=== PATIENT | female | born 2000 | race African-American/Black ===

== ENCOUNTER 2020-04-29 12:40 | Emergency (ER) | payer BC, OTHER ==
[2020-04-29] MEDS ORDERED: EPINEPHrine 1 MG/ML AMP ONE (12:58)
[2020-04-29] MEDS ORDERED: Famotidine/PF 20 mg/2ml Vial ONE (13:18)
[2020-04-29] MEDS ORDERED: diphenhydrAMINE 50 MG/ML VIAL ONE (13:18)
[2020-04-29] MEDS ORDERED: methylPREDNISolone Sod Succ/PF 125 MG/2 ML VIAL ONE (13:18)
== END 2020-04-29 15:14 | disposition home or self-care (01) ==
LOC: ERS 12:40
DX: T78.1XXA Other adverse food reactions, not elsewhere classified, initial encounter (principal); R22.1 Localized swelling, mass and lump, neck; R22.0 Localized swelling, mass and lump, head; F17.290 Nicotine dependence, other tobacco product, uncomplicated
CPT/HCPCS: 96372; 96374; 96375; J0171; J1200; J2930; S0028